=== PATIENT | female | born 1990 | race Hispanic/Latino ===

== ENCOUNTER 2019-07-02 08:02 | Emergency (ER) | payer MEDICAID ==
[2019-07-02 08:07] VITALS: BP 117/76
[2019-07-02 08:36] LABS: Basophils % (Auto) 0.4 % (0.0-1.8); Eosinophils # (Auto) 0.1 K/mm3 (0.0-0.4); Eosinophils % (Auto) 0.9 % (0.0-4.3); Hematocrit 37.7 % (30.3-42.9); Lymphocytes # (Auto) 1.7 K/mm3 (1.2-5.4); Lymphocytes % (Auto) 20.6 % (13.4-35.0); Mean Corpuscular HGB Conc 34 % (30-34); Mean Corpuscular Volume 97 fl (79-97); Monocytes # (Auto) 0.5 K/mm3 (0.0-0.8); Monocytes % (Auto) 6.2 % (0.0-7.3); Platelet Count 274 K/mm3 (140-440); Red Cell Distribution Width 12.5 % (13.2-15.2)
--- NOTE | 2019-07-02 08:38 | Emergency Department Report ---
ED HPI - General Chief complaint: Vaginal Bleeding Stated complaint: 3MOS /ADB CRAMPS/SPOTTING Time Seen by Provider: 07/02/19 08:09 Source: patient Mode of arrival: Ambulatory Limitations: No Limitations - History of Present Illness Initial comments: Patient is a 28-year-old female presents emergency room with complaints of light vaginal spotting that began yesterday. pt has associated suprapubic abdominal cramping and intermittent nausea and vomiting. She states she is currently 11 weeks . Her last menstrual cycle was April 15. She states that her PC TECHNICIAN is at [facility]. She states that she is able to tolerate by mouth intake. she denies any dysuria, vaginal discharge, diarrhea, fever. She denies any past medical history. She has allergy to codeine. /P:2/A:0 - Related Data Allergies Allergy/AdvReac Type Severity Reaction Status Date / Time codeine Allergy Swelling Verified 07/02/19 08:03 ED Review of Systems ROS: Stated complaint: 3MOS /ADB CRAMPS/SPOTTING Other details as noted in HPI Comment: All other systems reviewed and negative ED Past Medical Hx - Past Medical History Previous Medical History?: No - Surgical History Additional Surgical History: tonsilectomy - Social History Smoking Status: Never Smoker Substance Use Type: None ED Physical Exam - General Limitations: No Limitations General appearance: alert, in no apparent distress - Head Head exam: Present: atraumatic, normocephalic - Eye Eye exam: Present: normal appearance - ENT ENT exam: Present: mucous membranes moist - Respiratory Respiratory exam: Present: normal lung sounds bilaterally. Absent: respiratory distress, wheezes, rales, rhonchi, stridor, chest wall tenderness, accessory muscle use, decreased breath sounds, prolonged expiratory - Cardiovascular Cardiovascular Exam: Present: regular rate, normal rhythm, normal heart sounds. Absent: systolic murmur, diastolic murmur, rubs, gallop - GI/Abdominal GI/Abdominal exam: Present: soft, normal bowel sounds. Absent: distended, tenderness, guarding, rebound, rigid - Back Exam Back exam: Absent: CVA tenderness (R), CVA tenderness (L) - Neurological Exam Neurological exam: Present: alert, oriented X3 - Psychiatric Psychiatric exam: Present: normal affect, normal mood - Skin Skin exam: Present: warm, dry, intact ED Course Vital Signs 07/02/19 08:05 Temperature 98.3 F Pulse Rate 90 Respiratory 16 Rate Blood Pressure 117/76 O2 Sat by Pulse 100 Oximetry ED Medical Decision Making - Lab Data Result diagrams: 07/02/19 08:22 Lab Results 07/02/19 07/02/19 07/02/19 Range/Units 08:22 08:22 08:22 WBC 8.3 (4.5-11.0) K/mm3 RBC 3.90 (3.65-5.03) M/mm3 Hgb 13.0 (10.1-14.3) gm/dl Hct 37.7 (30.3-42.9) % MCV 97 (79-97) fl MCH 33 H (28-32) pg MCHC 34 (30-34) % RDW 12.5 L (13.2-15.2) % Plt Count 274 (140-440) K/mm3 Lymph % (Auto) 20.6 (13.4-35.0) % [place] % (Auto) 6.2 (0.0-7.3) % Eos % (Auto) 0.9 (0.0-4.3) % Baso % (Auto) 0.4 (0.0-1.8) % Lymph # 1.7 (1.2-5.4) K/mm3 [place] # 0.5 (0.0-0.8) K/mm3 Eos # 0.1 (0.0-0.4) K/mm3 Baso # 0.0 (0.0-0.1) K/mm3 Seg Neutrophils % 71.9 H (40.0-70.0) % Seg Neutrophils # 5.9 (1.8-7.7) K/mm3 HCG, Quant 11072 H (0-4) mIU/mL Urine Color (Yellow) Urine Turbidity (Clear) Urine pH (5.0-7.0) Ur Specific [place] (1.003-1.030) Urine Protein (Negative) mg/dL Urine Glucose (UA) (Negative) mg/dL Urine Ketones (Negative) mg/dL Urine Blood (Negative) Urine Nitrite (Negative) Urine Bilirubin (Negative) Urine Urobilinogen (<2.0) mg/dL Ur Leukocyte Esterase (Negative) Urine WBC (Auto) (0.0-6.0) /HPF Urine RBC (Auto) (0.0-6.0) /HPF U Epithel Cells (Auto) (0-13.0) /HPF Urine Bacteria (Auto) (Negative) /HPF Amorphous Crystals Urine Mucus /HPF Blood Type A POSITIVE 07/02/19 Range/Units 09:26 WBC (4.5-11.0) K/mm3 RBC (3.65-5.03) M/mm3 Hgb (10.1-14.3) gm/dl Hct (30.3-42.9) % MCV (79-97) fl MCH (28-32) pg MCHC (30-34) % RDW (13.2-15.2) % Plt Count (140-440) K/mm3 Lymph % (Auto) (13.4-35.0) % [place] % (Auto) (0.0-7.3) % Eos % (Auto) (0.0-4.3) % Baso % (Auto) (0.0-1.8) % Lymph # (1.2-5.4) K/mm3 [place] # (0.0-0.8) K/mm3 Eos # (0.0-0.4) K/mm3 Baso # (0.0-0.1) K/mm3 Seg Neutrophils % (40.0-70.0) % Seg Neutrophils # (1.8-7.7) K/mm3 HCG, Quant (0-4) mIU/mL Urine Color Yellow (Yellow) Urine Turbidity Cloudy (Clear) Urine pH 7.0 (5.0-7.0) Ur Specific [place] 1.017 (1.003-1.030) Urine Protein <15 mg/dl (Negative) mg/dL Urine Glucose (UA) Neg (Negative) mg/dL Urine Ketones Neg (Negative) mg/dL Urine Blood Neg (Negative) Urine Nitrite Neg (Negative) Urine Bilirubin Neg (Negative) Urine Urobilinogen < 2.0 (<2.0) mg/dL Ur Leukocyte Esterase Mod (Negative) Urine WBC (Auto) 4.0 (0.0-6.0) /HPF Urine RBC (Auto) 5.0 (0.0-6.0) /HPF U Epithel Cells (Auto) 13.0 (0-13.0) /HPF Urine Bacteria (Auto) 2+ (Negative) /HPF Amorphous Crystals Few Urine Mucus 2+ /HPF Blood Type - Radiology Data Radiology results: report reviewed ULTRASOUND OBSTETRIC INDICATION / CLINICAL INFORMATION: 11 weeks , vaginal spotting, cramping. Clinical Gestational Age (GA): 11 weeks 1 day TECHNIQUE: Transabdominal. COMPARISON: None available. FINDINGS: GESTATIONAL SAC: Well-defined oval shape and intrauterine in location. EMBRYO/FETUS: No significant abnormality. - [place]-Rump Length = 3.96 cm = 10 weeks, 6 day(s). - Heart Rate, beats per minute (if present) = 169 ADNEXA: There is a 10 mm cyst in the left ovary. The right ovary is unremarkable. FREE FLUID: None. Placenta: Posterior ADDITIONAL FINDINGS: None. IMPRESSION: 1. Single, living intrauterine with estimated sonographic age of 10 weeks, 6 day(s). 2. No visible abnormality at this time. Signer Name: Radha Pennington MD Signed: 07/02/2019 9:59 AM Workstation Name: [id number] Transcribed By: JR Dictated By: Radha Pennington MD Electronically Authenticated By: Radha Pennington MD Signed Date/Time: 07/02/19 0959 - Medical Decision Making Patient is a 28-year-old female presents emergency room with complaints of light vaginal spotting that began yesterday. pt has associated suprapubic abdominal cramping and intermittent nausea and vomiting. She states she is currently 11 weeks . Her last menstrual cycle was April 15. She states that her OB/G YN is at [facility]. She states that she is able to tolerate by mouth intake. she denies any dysuria, vaginal discharge, diarrhea, fever. She denies any past medical history. She has allergy to codeine. /P:2/A:0. vitals are normal. labs are stable. UA is normal. pt is Rh positive. OB US: 1. Single, living intrauterine with estimated sonographic age of 10 weeks, 6 day(s). 2. No visible abnormality at this time. discussed results with pt. pt given medication for her nausea and it resolved, pt had no episodes of emesis while in the ED, pt is tolerating PO intake. discussed with pt due to the abdominal cramping and light spotting it is considered a threatened miscarriage and she needed close follow up with her PC TECHNICIAN. advised pt to please drink plenty of water. please continue taking your vitamin daily. Please practice pelvic rest. follow up with your PC TECHNICIAN in the next 2-3 days. Return to the emergency room for any new or worsening symptoms. - Differential Diagnosis IUP, UTI, subchorionic hemorrhage, hemorrhagic cyst, placenta previa Critical care attestation.: If time is entered above; I have spent that time in minutes in the direct care of this critically ill patient, excluding procedure time. ED Disposition Clinical Impression: Suprapubic cramping, Vaginal spotting, Threatened miscarriage Disposition: TO HOME OR SELFCARE Is pt being admited?: No Does the pt Need Aspirin: No Condition: Stable Instructions: Threatened Miscarriage (ED) Additional Instructions: Please drink plenty of water. please continue taking your vitamin daily. Please practice pelvic rest. follow up with your PC TECHNICIAN in the next 2-3 days. Return to the emergency room for any new or worsening symptoms. Referrals: [facility] [Provider Group] - 2-3 Days Time of Disposition: 10:12 Print Language: KAZAKH
[2019-07-02] MEDS ORDERED: METOCLOPRAMIDE 10 MG TAB PO ONE (08:39)
[2019-07-02 09:56] LABS: Amorphous Crystals,Urine Few; Bacteria,Urine 2+ /HPF (Negative); Bilirubin,Urine NEG (Negative); Blood,Urine NEG (Negative); Color,Urine Yellow (Yellow); Mucus,Urine 2+ /HPF; Protein,Urine <15 mg/dL mg/dL (Negative); Urobilinogen,Urine < 2.0 mg/dL (<2.0)
--- NOTE | 2019-07-02 10:04 | Ultrasound Report ---
ULTRASOUND OBSTETRIC INDICATION / CLINICAL INFORMATION: 11 weeks , vaginal spotting, cramping. Clinical Gestational Age (GA): 11 weeks 1 day TECHNIQUE: Transabdominal. COMPARISON: None available. FINDINGS: GESTATIONAL SAC: Well-defined oval shape and intrauterine in location. EMBRYO/FETUS: No significant abnormality. - [place]-Rump Length = 3.96 cm = 10 weeks, 6 day(s). - Heart Rate, beats per minute (if present) = 169 ADNEXA: There is a 10 mm cyst in the left ovary. The right ovary is unremarkable. FREE FLUID: None. Placenta: Posterior ADDITIONAL FINDINGS: None. IMPRESSION: 1. Single, living intrauterine with estimated sonographic age of 10 weeks, 6 day(s). 2. No visible abnormality at this time. Signer Name: Radha Pennington MD Signed: 07/02/2019 9:59 AM Workstation Name: [id number]
== END 2019-07-02 10:21 | disposition home or self-care (01) ==
LOC: ED 08:02
DX: O20.0 Threatened abortion (principal); Z3A.11 11 weeks gestation of pregnancy; Z88.6 Allergy status to analgesic agent
CPT/HCPCS: 36415; 76801; 81001; 84702; 85025; 86900; 86901; 99284

== ENCOUNTER 2020-06-05 09:51 | Outpatient (CLI) | payer MEDICAID ==
[2020-06-05] MEDS ORDERED: LIDOCAINE (4%) 40 MG/ML TOPICAL SOLN 50 ML BOTTLE TP ONE (10:30)
== END 2020-06-05 09:52 | disposition home or self-care (01) ==
LOC: WOUND 09:51
PROVIDERS: ATTEND Surgery
DX: L97.412 Non-pressure chronic ulcer of right heel and midfoot with fat layer exposed (principal); S91.302A Unspecified open wound, left foot, initial encounter; F17.210 Nicotine dependence, cigarettes, uncomplicated; Z90.89 Acquired absence of other organs; X58.XXXA Exposure to other specified factors, initial encounter; Y93.89 Activity, other specified; Y92.89 Other specified places as the place of occurrence of the external cause; Y99.8 Other external cause status
CPT/HCPCS: 11042; G0463; 99214

== ENCOUNTER 2020-07-01 13:44 | Emergency (ER) | payer MEDICAID ==
[2020-07-01 14:01] VITALS: BP 123/86
[2020-07-01 14:26] LABS: Basophils % (Auto) 0.3 % (0.0-1.8); Eosinophils % (Auto) 0.8 % (0.0-4.3); Hemoglobin 14.2 gm/dl (10.1-14.3); Lymphocytes # (Auto) 1.5 K/mm3 (1.2-5.4); Lymphocytes % (Auto) 28.1 % (13.4-35.0); Mean Corpuscular HGB Conc 35 % (30-34); Mean Corpuscular Volume 96 fl (79-97); Monocytes # (Auto) 0.4 K/mm3 (0.0-0.8); Monocytes % (Auto) 6.6 % (0.0-7.3); Platelet Count 306 K/mm3 (140-440); Red Blood Count 4.26 M/mm3 (3.65-5.03); Red Cell Distribution Width 12.9 % (13.2-15.2)
--- NOTE | 2020-07-01 16:12 | Emergency Department Report ---
ED Female HPI - General Chief complaint: Vaginal Bleeding Stated complaint: HEAVY BLEEDING/ Time Seen by Provider: 07/01/20 15:47 Source: patient Mode of arrival: Ambulatory Limitations: No Limitations - History of Present Illness Initial comments: Patient is a 29-year-old female presents emergency room with complaints of vaginal bleeding for the last few days. States yesterday the bleeding got heavier but has since improved. She states that now she is just having light spotting. She states that she had an IUD placed a month ago. She states that she was feeling nauseous so she asked her [employer] to run a test and she reports it was positive about 2 weeks ago. She states that she had the IUD removed 2 weeks ago. She states that she has lower abdominal cramping since then. She states that she was concerned because the bleeding got a little heavier yesterday better now. She denies any fever, vomiting, diarrhea, chills, urinary symptoms, discharge or irritation. She states her OB is Dr. Anne. No past medical history. She has an allergy to codeine. - Related Data Previous Rx's Medication Instructions Recorded Last Taken Type Mupirocin [Bactroban 2% OINT] 1 applic TP TID 7 Days #2 tube 05/13/20 Unknown Rx oxyCODONE /ACETAMINOPHEN [Percocet 1 tab PO Q6HR PRN 3 Days #12 tablet 05/13/20 Unknown Rx 5/325 mg] Allergies Allergy/AdvReac Type Severity Reaction Status Date / Time codeine Allergy Swelling Verified 07/02/19 08:03 ED Review of Systems ROS: Stated complaint: HEAVY BLEEDING/ Other details as noted in HPI Comment: All other systems reviewed and negative ED Past Medical Hx - Past Medical History Previous Medical History?: No - Surgical History Past Surgical History?: Yes Additional Surgical History: tonsilectomy - Social History Smoking Status: Never Smoker Substance Use Type: None - Medications Home Medications: Home Medications Medication Instructions Recorded Confirmed Last Taken Type Mupirocin [Bactroban 2% OINT] 1 applic TP TID 7 Days #2 tube 05/13/20 Unknown Rx oxyCODONE /ACETAMINOPHEN [Percocet 1 tab PO Q6HR PRN 3 Days #12 tablet 05/13/20 Unknown Rx 5/325 mg] ED Physical Exam - General Limitations: No Limitations General appearance: alert, in no apparent distress - Head Head exam: Present: atraumatic, normocephalic - Eye Eye exam: Present: normal appearance - ENT ENT exam: Present: mucous membranes moist - Respiratory Respiratory exam: Present: normal lung sounds bilaterally. Absent: respiratory distress, wheezes, rales, rhonchi, stridor, chest wall tenderness, accessory muscle use, decreased breath sounds, prolonged expiratory - Cardiovascular Cardiovascular Exam: Present: regular rate, normal rhythm, normal heart sounds. Absent: systolic murmur, diastolic murmur, rubs, gallop - GI/Abdominal GI/Abdominal exam: Present: soft, normal bowel sounds. Absent: distended, tenderness, guarding, rebound, rigid - Neurological Exam Neurological exam: Present: alert, oriented X3 - Psychiatric Psychiatric exam: Present: normal affect, normal mood - Skin Skin exam: Present: warm, dry, intact ED Course Vital Signs 07/01/20 14:00 Temperature 98.1 F Pulse Rate 83 Respiratory 16 Rate Blood Pressure 123/86 O2 Sat by Pulse 98 Oximetry ED Medical Decision Making - Lab Data Result diagrams: 07/01/20 14:04 Lab Results 07/01/20 07/01/20 07/01/20 Range/Units 14:04 14:04 14:04 WBC 5.3 (4.5-11.0) K/mm3 RBC 4.26 (3.65-5.03) M/mm3 Hgb 14.2 (10.1-14.3) gm/dl Hct 41.0 (30.3-42.9) % MCV 96 (79-97) fl MCH 33 H (28-32) pg MCHC 35 H (30-34) % RDW 12.9 L (13.2-15.2) % Plt Count 306 (140-440) K/mm3 Lymph % (Auto) 28.1 (13.4-35.0) % [place] % (Auto) 6.6 (0.0-7.3) % Eos % (Auto) 0.8 (0.0-4.3) % Baso % (Auto) 0.3 (0.0-1.8) % Lymph # (Auto) 1.5 (1.2-5.4) K/mm3 [place] # (Auto) 0.4 (0.0-0.8) K/mm3 Eos # (Auto) 0.0 (0.0-0.4) K/mm3 Baso # (Auto) 0.0 (0.0-0.1) K/mm3 Seg Neutrophils % 64.2 (40.0-70.0) % Seg Neutrophils # 3.4 (1.8-7.7) K/mm3 HCG, Qual Negative (Negative) HCG, Quant < 2 (0-4) mIU/mL Blood Type 07/01/20 Range/Units 14:04 WBC (4.5-11.0) K/mm3 RBC (3.65-5.03) M/mm3 Hgb (10.1-14.3) gm/dl Hct (30.3-42.9) % MCV (79-97) fl MCH (28-32) pg MCHC (30-34) % RDW (13.2-15.2) % Plt Count (140-440) K/mm3 Lymph % (Auto) (13.4-35.0) % [place] % (Auto) (0.0-7.3) % Eos % (Auto) (0.0-4.3) % Baso % (Auto) (0.0-1.8) % Lymph # (Auto) (1.2-5.4) K/mm3 [place] # (Auto) (0.0-0.8) K/mm3 Eos # (Auto) (0.0-0.4) K/mm3 Baso # (Auto) (0.0-0.1) K/mm3 Seg Neutrophils % (40.0-70.0) % Seg Neutrophils # (1.8-7.7) K/mm3 HCG, Qual (Negative) HCG, Quant (0-4) mIU/mL Blood Type A POSITIVE - Medical Decision Making Patient is a 29-year-old female presents emergency room with complaints of vaginal bleeding for the last few days. States yesterday the bleeding got heavier but has since improved. She states that now she is just having light spotting. She states that she had an IUD placed a month ago. She states that she was feeling nauseous so she asked her [employer] to run a test and she reports it was positive about 2 weeks ago. She states that she had the IUD removed 2 weeks ago. She states that she has lower abdominal cramping since then. She states that she was concerned because the bleeding got a little heavier yesterday better now. She denies any fever, vomiting, diarrhea, chills, urinary symptoms, discharge or irritation. She states her OB is Dr. Anne. No past medical history. She has an allergy to codeine. vitals are normal. on e xam: No abdominal tenderness on exam, no guarding, no rebound, no rigidity, no distention, normal bowel sounds, no peritoneal signs. Labs are normal. hCG quant is less than 2. H&H is normal. Discussed all results with patient and discussed hCG quant value. discussed the importance of [employer] follow up with pt, she states she is currently seeing an [employer] SPECIALTY GROWER. Advised patient May alternate Tylenol or ibuprofen as needed for lower abdominal cramping. Increase your water intake. Follow-up with your [employer] within the next couple of days. Return to emergency room for any new or worsening symptoms. - Differential Diagnosis IUP, ectopic, AUB, menstrual cycle, post IUD removal bleeding Critical care attestation.: If time is entered above; I have spent that time in minutes in the direct care of this critically ill patient, excluding procedure time. ED Disposition Clinical Impression: Abnormal uterine bleeding (AUB) Disposition: DC-01 TO HOME OR SELFCARE Is pt being admited?: No Does the pt Need Aspirin: No Condition: Stable Additional Instructions: May alternate Tylenol or ibuprofen as needed for lower abdominal cramping. Increase your water intake. Follow-up with your [employer] within the next couple of days. Return to emergency room for any new or worsening symptoms. Referrals: KENZIE ANNE MD [Referring] - 2-3 Days Time of Disposition: 16:11 Print Language: LAO
== END 2020-07-01 16:35 | disposition home or self-care (01) ==
LOC: ED 13:44
DX: N93.8 Other specified abnormal uterine and vaginal bleeding (principal); Z90.89 Acquired absence of other organs; Z88.4 Allergy status to anesthetic agent
CPT/HCPCS: 36415; 84702; 84703; 85025; 86900; 86901; 99283

== ENCOUNTER 2021-08-18 02:08 | Emergency (ER) | payer MEDICAID ==
[2021-08-18] MEDS ORDERED: AMOXICILLIN/K CLAV 875/125MG TAB PO ONE (02:25)
[2021-08-18] MEDS ORDERED: IBUPROFEN 600 MG TAB PO ONE (02:25)
[2021-08-18] MEDS ORDERED: ACETAMINOPHEN 500 MG TAB PO ONE (02:26)
--- NOTE | 2021-08-18 02:30 | Emergency Department Report ---
ED General Adult HPI - General Chief complaint: Dental/Oral Stated complaint: TOOTHACHE PUI?: No Source: patient Mode of arrival: Ambulatory Limitations: No Limitations - History of Present Illness Initial comments: Patient is a 30-year-old white female with a history of anxiety and depression who presents to the ED with acute onset persistent severe right maxillary premolar molar toothache with swollen gums and pain for the last 2 days. Patient states that the pain got worse in the last 6 hours after she ate and with some food. Patient denies nausea and vomiting, headache, chest pain, shortness of breath, sore throat, dizziness, syncope, change in vision, traumatic injury, neck pain, back pain, fever and chills. MD Complaint: Dental pain; swollen gums and pain -: Sudden, days(s) (2) Location: mouth Radiation: non-radiation Severity scale (0 -10): 7 Quality: aching, sharp Consistency: constant Improves with: none Worsens with: eating Associated Symptoms: denies other symptoms. denies: confusion, chest pain, cough, diaphoresis, fever/chills, headaches, loss of appetite, malaise, nausea/ vomiting, rash, seizure, shortness of breath, syncope, weakness, other Treatments Prior to Arrival: none - Related Data Previous Rx's Medication Instructions Recorded Last Taken Type Mupirocin [Bactroban 2% OINT] 1 applic TP TID 7 Days #2 tube 05/13/20 Unknown Rx oxyCODONE /ACETAMINOPHEN [Percocet 1 tab PO Q6HR PRN 3 Days #12 tablet 05/13/20 Unknown Rx 5/325 mg] Clindamycin [Clindamycin CAP] 300 mg PO Q8HR #60 capsule 08/18/21 Unknown Rx Ketorolac [Toradol] 10 mg PO Q8H PRN #20 tablet 08/18/21 Unknown Rx traMADoL [Ultram] 50 mg PO Q6HR PRN #12 tablet 08/18/21 Unknown Rx Allergies Allergy/AdvReac Type Severity Reaction Status Date / Time codeine Allergy Swelling Verified 08/18/21 02:14 ED Review of Systems ROS: Stated complaint: TOOTHACHE Other details as noted in HPI Constitutional: denies: chills, fever Eyes: denies: eye pain, eye discharge, vision change ENT: dental pain (Right maxillary gingival swelling and pain; right maxillary premolar and molar tooth). denies: ear pain, throat pain, congestion Respiratory: denies: cough, shortness of breath, wheezing Cardiovascular: denies: chest pain, palpitations Endocrine: no symptoms reported Gastrointestinal: denies: abdominal pain, nausea, diarrhea Genitourinary: denies: urgency, dysuria, discharge Musculoskeletal: denies: back pain, joint swelling, arthralgia Skin: denies: rash, lesions Neurological: denies: headache, weakness, paresthesias Psychiatric: denies: anxiety, depression Hematological/Lymphatic: denies: easy bleeding, easy bruising ED Past Medical Hx - Past Medical History Previous Medical History?: No Hx Psychiatric Treatment: Yes (Anxiety and depression) - Surgical History Past Surgical History?: Yes Additional Surgical History: tonsilectomy - Social History Smoking Status: Never Smoker Substance Use Type: None - Medications Home Medications: Home Medications Medication Instructions Recorded Confirmed Last Taken Type Mupirocin [Bactroban 2% OINT] 1 applic TP TID 7 Days #2 tube 05/13/20 Unknown Rx oxyCODONE /ACETAMINOPHEN [Percocet 1 tab PO Q6HR PRN 3 Days #12 tablet 05/13/20 Unknown Rx 5/325 mg] Clindamycin [Clindamycin CAP] 300 mg PO Q8HR #60 capsule 08/18/21 Unknown Rx Ketorolac [Toradol] 10 mg PO Q8H PRN #20 tablet 08/18/21 Unknown Rx traMADoL [Ultram] 50 mg PO Q6HR PRN #12 tablet 08/18/21 Unknown Rx ED Physical Exam - General Limitations: No Limitations General appearance: alert, in no apparent distress - Head Head exam: Present: atraumatic, normocephalic, normal inspection - Eye Eye exam: Present: normal appearance, PERRL, EOMI Pupils: Present: normal accommodation - ENT ENT exam: Present: mucous membranes moist, TM's normal bilaterally, normal external ear exam, other (Swelling, tender right maxillary gingiva, severely tender right maxillary premolar and molar teeth) - Neck Neck exam: Present: normal inspection, full ROM - Respiratory Respiratory exam: Present: normal lung sounds bilaterally. Absent: respiratory distress, wheezes, rales, stridor, chest wall tenderness, accessory muscle use, prolonged expiratory, other - Cardiovascular Cardiovascular Exam: Present: regular rate, normal rhythm, normal heart sounds. Absent: systolic murmur, diastolic murmur, rubs, gallop - GI/Abdominal GI/Abdominal exam: Present: soft, normal bowel sounds. Absent: tenderness, guarding, hyperactive bowel sounds, hypoactive bowel sounds, organomegaly - Extremities Exam Extremities exam: Present: normal inspection, full ROM, normal capillary refill - Back Exam Back exam: Present: normal inspection, full ROM. Absent: tenderness, CVA tende rness (R), CVA tenderness (L), muscle spasm, paraspinal tenderness, vertebral tenderness - Neurological Exam Neurological exam: Present: alert, oriented X3, CN II-XII intact, normal gait, reflexes normal - Psychiatric Psychiatric exam: Present: normal affect, normal mood - Skin Skin exam: Present: warm, dry, intact, normal color. Absent: rash ED Course Vital Signs 08/18/21 02:11 Temperature 98.9 F Pulse Rate 84 Respiratory 17 Rate Blood Pressure 122/83 [Right] O2 Sat by Pulse 99 Oximetry ED Medical Decision Making - Medical Decision Making This is a 30-year-old white female with a history of anxiety and depression who presents to the ED with acute onset persistent severe right maxillary premolar molar toothache with swollen gums and pain for the last 2 days. Patient states that the pain got worse in the last 6 hours after she ate and with some food. In the ED, patient is alert and oriented x3 and is not in any distress. Patient was treated for pain in the ED and based on the history and physical exam findings, the patient will discharge home on medications including antibiotics and pain medications. Patient was advised to follow-up with her dentist as previously scheduled for Sunday, August 22, 2021 for further evaluation. Patient is advised return to the ED immediately if symptoms get worse. - Differential Diagnosis Dental abscess; dental caries; gingivitis Critical care attestation.: If time is entered above; I have spent that time in minutes in the direct care of this critically ill patient, excluding procedure time. ED Disposition Clinical Impression: Acute gingivitis, Dental abscess, Dental caries Disposition: HOME / SELF CARE / HOMELESS Is pt being admited?: No Does the pt Need Aspirin: No Condition: Stable Instructions: Dental Abscess, [id number], Trench Mouth Additional Instructions: Take medication with food, drink plenty of fluids and follow-up with your primary care physician or dentist in 7 to 10 days for reevaluation. Return to the ED immediately if symptoms get worse. Prescriptions: Clindamycin [Clindamycin CAP] 300 mg PO Q8HR #60 capsule Ketorolac [Toradol] 10 mg PO Q8H PRN #20 tablet PRN Reason: Pain traMADoL [Ultram] 50 mg PO Q6HR PRN #12 tablet PRN Reason: Pain Referrals: [facility] [Outside] - 7-10 days Time of Disposition: 02:31 Print Language: [place]URK[place]
[2021-08-18 04:11] VITALS: BP 109/73
== END 2021-08-18 03:26 | disposition home or self-care (01) ==
LOC: ED 02:08
DX: K04.7 Periapical abscess without sinus (principal); K02.9 Dental caries, unspecified; K05.00 Acute gingivitis, plaque induced; F41.9 Anxiety disorder, unspecified; Z88.8 Allergy status to other drugs, medicaments and biological substances
CPT/HCPCS: 99282

== ENCOUNTER 2022-02-10 10:10 | Emergency (ER) | payer MEDICAID ==
[2022-02-10 14:14] LABS: HCG Qualitative,Urine Positive (Negative)
[2022-02-10] MEDS ORDERED: ONDANSETRON 4 MG/2 ML INJ IV ONE (14:18)
[2022-02-10] MEDS ORDERED: SODIUM CHLORIDE 0.9% 1000 ML 1,000 ML IV ONE (14:18)
--- NOTE | 2022-02-10 14:18 | Emergency Department Report ---
ED Female HPI - General Chief complaint: Nausea/Vomiting/Diarrhea Stated complaint: NAUSEA/DIZZINESS Time Seen by Provider: 02/10/22 14:16 Source: patient Mode of arrival: Ambulatory Limitations: No Limitations - History of Present Illness Initial comments: Patient is a 31-year-old female that comes to the emergency room with nausea and vomiting associated with . She states she took a test at home. And it was positive. She endorses hyperemesis with all of her prior pregnancies. This is #4. She has 3 living children. 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 She denies any abdominal pain. Denies back pain. Denies dysuria. Denies vaginal discharge. Denies vaginal bleeding. -: Gradual, days(s) Severity scale (0 -10): 0 Worsens with: none Are you Now?: Yes Last Menstrual Period: 01/01/22 EDC: 10/08/22 Associated Symptoms: denies other symptoms - Related Data Sexually active: Yes : 4 Para: 3 Previous Rx's Medication Instructions Recorded Last Taken Type Ondansetron [Zofran Odt] 4 mg PO Q8HR PRN #10 tab.rapdis 02/10/22 Unknown Rx Allergies Allergy/AdvReac Type Severity Reaction Status Date / Time codeine Allergy Swelling Verified 08/18/21 02:14 ED Review of Systems ROS: Stated complaint: NAUSEA/DIZZINESS Other details as noted in HPI Comment: All other systems reviewed and negative ED Past Medical Hx - Past Medical History Previous Medical History?: Yes Hx Psychiatric Treatment: Yes (Anxiety and depression) Additional medical history: Hyperemesis gravidarum - Surgical History Past Surgical History?: Yes Additional Surgical History: tonsilectomy - Family History Family history: no significant - Social History Smoking Status: Never Smoker Substance Use Type: None - Medications Home Medications: Home Medications Medication Instructions Recorded Confirmed Last Taken Type Ondansetron [Zofran Odt] 4 mg PO Q8HR PRN #10 tab.rapdis 02/10/22 Unknown Rx ED Physical Exam - General Limitations: No Limitations General appearance: alert, in no apparent distress - Head Head exam: Present: atraumatic, normocephalic - Eye Eye exam: Present: normal appearance - ENT ENT exam: Present: mucous membranes moist - Neck Neck exam: Present: normal inspection - Respiratory Respiratory exam: Present: normal lung sounds bilaterally. Absent: respiratory distress - Cardiovascular Cardiovascular Exam: Present: regular rate, normal rhythm. Absent: systolic murmur, diastolic murmur, rubs, gallop - GI/Abdominal GI/Abdominal exam: Present: soft, normal bowel sounds - Extremities Exam Extremities exam: Present: normal inspection - Back Exam Back exam: Present: normal inspection - Neurological Exam Neurological exam: Present: alert, oriented X3 - Psychiatric Psychiatric exam: Present: normal affect, normal mood - Skin Skin exam: Present: warm, dry, intact, normal color. Absent: rash ED Course Vital Signs 02/10/22 12:05 Temperature 97.6 F Pulse Rate 70 Respiratory 18 Rate Blood Pressure 96/56 O2 Sat by Pulse 100 Oximetry ED Medical Decision Making - Medical Decision Making Vital Signs 02/10/22 12:05 Temperature 97.6 F Pulse Rate 70 Respiratory 18 Rate Blood Pressure 96/56 O2 Sat by Pulse 100 Oximetry Lab Results 02/10/22 Range/Units 13:52 Urine Color Colorless (Yellow) Urine Turbidity Clear (Clear) Urine pH 9.0 H (5.0-7.0) Ur Specific [place] 1.004 (1.003-1.030) Urine Protein <15 mg/dl (Negative) mg/dL Urine Glucose (UA) Neg (Negative) mg/dL Urine Ketones Neg (Negative) mg/dL Urine Blood Neg (Negative) Urine Nitrite Neg (Negative) Ur Reducing Substances Not Reportable Urine Bilirubin Neg (Negative) Urine Ictotest Not Reportable Urine Urobilinogen < 2.0 (<2.0) mg/dL Ur Leukocyte Esterase Neg (Negative) Urine WBC (Auto) 1.0 (0.0-6.0) /HPF Urine RBC (Auto) 1.0 (0.0-6.0) /HPF U Epithel Cells (Auto) 1.0 (0-13.0) /HPF Urine Bacteria (Auto) 1+ (Negative) /HPF Urine HCG, Qual Positive A (Negative) UA noted. Patient given a liter normal saline and Zofran. Patient being discharged home with discharge plan of care including diet, activity, medications and follow-up. She verbalizes understanding of plan of care. - Differential Diagnosis Nausea and vomiting associated with Critical care attestation.: If time is entered above; I have spent that time in minutes in the direct care of this critically ill patient, excluding procedure time. ED Disposition Clinical Impression: Nausea and vomiting during Disposition: 01 HOME / SELF CARE / HOMELESS Is pt being admited?: No Does the pt Need Aspirin: No Condition: Stable Instructions: Morning Sickness, [id number] Additional Instructions: Diet as tolerated stay well-hydrated with water Tylenol only for pain Zofran for nausea Follow-up with [employer] [employer] as we discussed. Referral below Referrals: NOBLE VALLECILLO MD [Staff Physician] - 3-5 Days Time of Disposition: 14:18
[2022-02-10 14:23] LABS: Bacteria,Urine 1+ /HPF (Negative); Bilirubin,Urine NEG (Negative); Blood,Urine NEG (Negative); Color,Urine Colorless (Yellow); Protein,Urine <15 mg/dL mg/dL (Negative); Urobilinogen,Urine < 2.0 mg/dL (<2.0)
[2022-02-10 15:58] VITALS: BP 100/62
== END 2022-02-10 16:00 | disposition home or self-care (01) ==
LOC: ED 10:10
DX: O21.8 Other vomiting complicating pregnancy (principal); Z3A.01 Less than 8 weeks gestation of pregnancy; F41.9 Anxiety disorder, unspecified; F32.9 Major depressive disorder, single episode, unspecified; Z98.890 Other specified postprocedural states; Z88.5 Allergy status to narcotic agent
CPT/HCPCS: 81001; 81025; 96374; 99283; J2405; J7030

== ENCOUNTER 2022-02-22 09:55 | Emergency (ER) | payer MEDICAID ==
[2022-02-22] MEDS ORDERED: METOCLOPRAMIDE 10 MG TAB PO ONE (10:12)
[2022-02-22 10:17] VITALS: BP 98/67
[2022-02-22 11:01] LABS: Basophils % (Auto) 0.3 % (0.0-1.8); Eosinophils # (Auto) 0.1 K/mm3 (0.0-0.4); Eosinophils % (Auto) 0.9 % (0.0-4.3); Hematocrit 36.4 % (30.3-42.9); Hemoglobin 12.4 gm/dl (10.1-14.3); Lymphocytes # (Auto) 1.3 K/mm3 (1.2-5.4); Lymphocytes % (Auto) 17.3 % (13.4-35.0); Mean Corpuscular HGB Conc 34 % (30-34); Mean Corpuscular Volume 98 fl (79-97); Monocytes # (Auto) 0.6 K/mm3 (0.0-0.8); Monocytes % (Auto) 7.9 % (0.0-7.3); Platelet Count 260 K/mm3 (140-440); Red Blood Count 3.73 M/mm3 (3.65-5.03); Red Cell Distribution Width 11.8 % (13.2-15.2)
[2022-02-22 11:08] LABS: INR 0.95 (0.87-1.13)
[2022-02-22 11:09] LABS: Partial Thromboplastin Time 24.7 Sec. (24.2-36.6)
[2022-02-22 11:50] LABS: Alanine Aminotransferase 13 units/L (7-56); Albumin 4.3 g/dL (3.9-5); Blood Urea Nitrogen 9 mg/dL (7-17); Calcium 8.8 mg/dL (8.4-10.2); Hemolysis Index 3
[2022-02-22 11:58] LABS: BUN/Creatinine Ratio 23
[2022-02-22 12:19] LABS: Bacteria,Urine 1+ /HPF (Negative); Bilirubin,Urine NEG (Negative); Blood,Urine NEG (Negative); Color,Urine Yellow (Yellow); Mucus,Urine 3+ /HPF; Urobilinogen,Urine < 2.0 mg/dL (<2.0)
--- NOTE | 2022-02-22 13:00 | Emergency Department Report ---
ED HPI - General Chief complaint: Vaginal Bleeding Stated complaint: SPOTTING DURING PREG/NAUSEA Time Seen by Provider: 02/22/22 10:02 Source: patient Mode of arrival: Ambulatory Limitations: No Limitations - History of Present Illness Initial comments: This is a 31-year-old female nontoxic, well nourished in appearance, no acute signs of distress presents to the ED with c/o of vaginal bleeding x1 day. Patient stated yesterday she noticed some spotting. Patient denies any heavy vaginal bleeding. Patient stated she did see her STOCK HANGER and was prescribed Phenergan with no significant relief. Patient also stated has some nausea witho ut vomiting. Patient denies any abdominal or pelvic pain. Patient denies any vaginal discharge or foul odor. Patient denies any vomiting, chest pain, shortness of breathe, fever, chills, headache, stiff neck, numbness, tingling. Patient denies any urinary symptoms. Patient stated allergies to codeine. -: days(s) Radiation: none Severity scale (0 -10): 0 Improves with: none Worsens with: none Associated symptoms: nausea/vomiting. denies: vaginal bleeding, vaginal discharge, abdominal pain, dysuria, headache, vision changes, malaise, dysparuenia, rash, seizure, shortness of breath, syncope, weakness Vaginal bleeding: light :: Yes Number of weeks : 8 Pre-annamarie care: followed by OB - Related Data Previous Rx's Medication Instructions Recorded Last Taken Type Ondansetron [Zofran Odt] 4 mg PO Q8HR PRN #10 tab.rapdis 02/10/22 Unknown Rx Metoclopramide [Reglan] 10 mg PO BID PRN #12 tab 02/22/22 Unknown Rx Allergies Allergy/AdvReac Type Severity Reaction Status Date / Time codeine Allergy Swelling Verified 08/18/21 02:14 ED Review of Systems ROS: Stated complaint: SPOTTING DURING PREG/NAUSEA Other details as noted in HPI Comment: All other systems reviewed and negative Constitutional: denies: chills, fever Eyes: denies: eye pain, eye discharge, vision change ENT: denies: ear pain, throat pain Respiratory: denies: cough, shortness of breath, wheezing Cardiovascular: denies: chest pain, palpitations Endocrine: no symptoms reported Gastrointestinal: nausea. denies: abdominal pain, vomiting, diarrhea, constipation, hematemesis, melena, hematochezia Genitourinary: abnormal menses. denies: urgency, dysuria, discharge Musculoskeletal: denies: back pain, joint swelling, arthralgia Skin: denies: rash, lesions Neurological: denies: headache, weakness, paresthesias Psychiatric: denies: anxiety, depression Hematological/Lymphatic: denies: easy bleeding, easy bruising ED Past Medical Hx - Past Medical History Previous Medical History?: No Hx Psychiatric Treatment: Yes (Anxiety and depression) Additional medical history: Hyperemesis gravidarum - Surgical History Additional Surgical History: tonsilectomy - Social History Smoking Status: Never Smoker - Medications Home Medications: Home Medications Medication Instructions Recorded Confirmed Last Taken Type Ondansetron [Zofran Odt] 4 mg PO Q8HR PRN #10 tab.rapdis 02/10/22 Unknown Rx Metoclopramide [Reglan] 10 mg PO BID PRN #12 tab 02/22/22 Unknown Rx ED Physical Exam - General Limitations: No Limitations General appearance: alert, in no apparent distress - Head Head exam: Present: atraumatic, normocephalic - Eye Eye exam: Present: normal appearance - Neck Neck exam: Present: normal inspection, full ROM. Absent: lymphadenopathy - Respiratory Respiratory exam: Absent: respiratory distress - Cardiovascular Cardiovascular Exam: Present: regular rate - GI/Abdominal GI/Abdominal exam: Present: soft, normal bowel sounds. Absent: distended, tenderness, guarding, rebound, rigid, diminished bowel sounds - Extremities Exam Extremities exam: Present: full ROM - Back Exam Back exam: Present: full ROM - Neurological Exam Neurological exam: Present: alert, oriented X3, normal gait - Psychiatric Psychiatric exam: Present: normal affect, normal mood - Skin Skin exam: Present: warm, dry, intact, normal color. Absent: rash ED Course Vital Signs 02/22/22 10:11 Temperature 98.7 F Pulse Rate 92 H Respiratory 14 Rate Blood Pressure 98/67 O2 Sat by Pulse 100 Oximetry - Reevaluation(s) Reevaluation #1: 02/22/22 13:02 Patient is speaking in full sentences with no signs of distress noted. ED Medical Decision Making - Lab Data Result diagrams: 02/22/22 10:30 02/22/22 10:30 Lab Results 02/22/22 02/22/22 02/22/22 Range/Units 10:30 10:30 10:30 WBC 7.3 (4.5-11.0) K/mm3 RBC 3.73 (3.65-5.03) M/mm3 Hgb 12.4 (10.1-14.3) gm/dl Hct 36.4 (30.3-42.9) % MCV 98 H (79-97) fl MCH 33 H (28-32) pg MCHC 34 (30-34) % RDW 11.8 L (13.2-15.2) % Plt Count 260 (140-440) K/mm3 Lymph % (Auto) 17.3 (13.4-35.0) % [place] % (Auto) 7.9 H (0.0-7.3) % Eos % (Auto) 0.9 (0.0-4.3) % Baso % (Auto) 0.3 (0.0-1.8) % Lymph # (Auto) 1.3 (1.2-5.4) K/mm3 [place] # (Auto) 0.6 (0.0-0.8) K/mm3 Eos # (Auto) 0.1 (0.0-0.4) K/mm3 Baso # (Auto) 0.0 (0.0-0.1) K/mm3 Seg Neutrophils % 73.6 H (40.0-70.0) % Seg Neutrophils # 5.4 (1.8-7.7) K/mm3 PT 13.7 (12.2-14.9) Sec. INR 0.95 (0.87-1.13) APTT 24.7 (24.2-36.6) Sec. Sodium 135 L (137-145) mmol/L Potassium 3.8 (3.6-5.0) mmol/L Chloride 105.8 (98-107) mmol/L Carbon Dioxide 22 (22-30) mmol/L Anion Gap 11 mmol/L BUN 9 (7-17) mg/dL Creatinine 0.4 L (0.6-1.2) mg/dL Estimated GFR > 60 ml/min BUN/Creatinine Ratio 23 % Glucose 88 (65-100) mg/dL Calcium 8.8 (8.4-10.2) mg/dL Total Bilirubin 0.30 (0.1-1.2) mg/dL AST 12 (5-40) units/L ALT 13 (7-56) units/L Alkaline Phosphatase 53 (35-129) units/L Total Protein 6.9 (6.3-8.2) g/dL Albumin 4.3 (3.9-5) g/dL Albumin/Globulin Ratio 1.7 % Urine Color (Yellow) Urine Turbidity (Clear) Urine pH (5.0-7.0) Ur Specific [place] (1.003-1.030) Urine Protein (Negative) mg/dL Urine Glucose (UA) (Negative) mg/dL Urine Ketones (Negative) mg/dL Urine Blood (Negative) Urine Nitrite (Negative) Urine Bilirubin (Negative) Urine Urobilinogen (<2.0) mg/dL Ur Leukocyte Esterase (Negative) Urine WBC (Auto) (0.0-6.0) /HPF Urine RBC (Auto) (0.0-6.0) /HPF U Epithel Cells (Auto) (0-13.0) /HPF Urine Bacteria (Auto) (Negative) /HPF Urine Mucus /HPF Blood Type 02/22/22 02/22/22 Range/Units 10:30 Unknown WBC (4.5-11.0) K/mm3 RBC (3.65-5.03) M/mm3 Hgb (10.1-14.3) gm/dl Hct (30.3-42.9) % MCV (79-97) fl MCH (28-32) pg MCHC (30-34) % RDW (13.2-15.2) % Plt Count (140-440) K/mm3 Lymph % (Auto) (13.4-35.0) % [place] % (Auto) (0.0-7.3) % Eos % (Auto) (0.0-4.3) % Baso % (Auto) (0.0-1.8) % Lymph # (Auto) (1.2-5.4) K/mm3 [place] # (Auto) (0.0-0.8) K/mm3 Eos # (Auto) (0.0-0.4) K/mm3 Baso # (Auto) (0.0-0.1) K/mm3 Seg Neutrophils % (40.0-70.0) % Seg Neutrophils # (1.8-7.7) K/mm3 PT (12.2-14.9) Sec. INR (0.87-1.13) APTT (24.2-36.6) Sec. Sodium (137-145) mmol/L Potassium (3.6-5.0) mmol/L Chloride (98-107) mmol/L Carbon Dioxide (22-30) mmol/L Anion Gap mmol/L BUN (7-17) mg/dL Creatinine (0.6-1.2) mg/dL Estimated GFR ml/min BUN/Creatinine Ratio % Glucose (65-100) mg/dL Calcium (8.4-10.2) mg/dL Total Bilirubin (0.1-1.2) mg/dL AST (5-40) units/L ALT (7-56) units/L Alkaline Phosphatase (35-129) units/L Total Protein (6.3-8.2) g/dL Albumin (3.9-5) g/dL Albumin/Globulin Ratio % Urine Color Yellow (Yellow) Urine Turbidity Slightly-cloudy (Clear) Urine pH 7.0 (5.0-7.0) Ur Specific [place] 1.023 (1.003-1.030) Urine Protein 30 mg/dl (Negative) mg/dL Urine Glucose (UA) Neg (Negative) mg/dL Urine Ketones Neg (Negative) mg/dL Urine Blood Neg (Negative) Urine Nitrite Neg (Negative) Urine Bilirubin Neg (Negative) Urine Urobilinogen < 2.0 (<2.0) mg/dL Ur Leukocyte Esterase Mod (Negative) Urine WBC (Auto) 2.0 (0.0-6.0) /HPF Urine RBC (Auto) 2.0 (0.0-6.0) /HPF U Epithel Cells (Auto) 9.0 (0-13.0) /HPF Urine Bacteria (Auto) 1+ (Negative) /HPF Urine Mucus 3+ /HPF Blood Type A POSITIVE - Radiology Data [facility] [address] [place] [address] Ultrasound Report Signed Patient: TONI MADDEN MR#: [id number] : 1990 Acct:[id number] Age/Sex: 31 / F ADM Date: 02/22/22 Loc: ED Attending Dr: Ordering Physician: TIANNA PITTMAN NP Date of Service: 02/22/22 Procedure(s): US OB <= 14 wk fetus add gest Accession Number(s): [id number] cc: TIANNA PITTMAN NP OB Ultrasound HISTORY: vaginal bleeding. TECHNIQUE: Grayscale and color imaging performed. COMPARISON: None FINDINGS: Uterus measures 10.3 x 7.5 x 6.6 cm with twin gestations in place. The ovaries both appear unremarkable with no appreciable pelvic free fluid. Twin A: [place]-rump length of 1.3 cm corresponding with an EGA of 7 weeks and 4 days. Heart rate 150 bpm. Twin B: [place]-rump length of 1.2 cm corresponding with an EGA of 7 weeks and 3 days. Heart rate is 159 bpm. IMPRESSION: Twin gestations as outlined above. Signer Name: Floyd Thomas MD Signed: 02/22/2022 11:46 AM Workstation Name: [id number] Transcribed By: WEI Dictated By: Floyd Thomas MD Electronically Authenticated By: Floyd Thomas MD Signed Date/Time: 02/22/22 1146 DD/ 1144 TD/TT: - Medical Decision Making This is a 31-year-old female presents with threatened miscarriage. Patient is stable and was examined by me. Normal abdominal exam. US OB obtained and dictated by the radiologist. Ua obtained. Quantative serum test obtained. Patient notified of the US report with no questions noted by the patient. Patient was instructed f/u with STOCK HANGER in 3-5 days. RH factor positive. A p.o. challenge has been obtained and patient tolerated well with no nausea vomiting. Patient currently stated nausea has subsided after giving Reglan. Labs within normal limits. At time of discharge, the patient does not seem toxic or ill in appearance. No acute signs of distress noted. Patient agrees to discharge treatment plan of care. No further questions noted by the patient. Critical care attestation.: If time is entered above; I have spent that time in minutes in the direct care of this critically ill patient, excluding procedure time. ED Disposition Clinical Impression: Threatened miscarriage, Nausea and vomiting during Disposition: HOME / SELF CARE / HOMELESS Is pt being admited?: No Does the pt Need Aspirin: No Condition: Stable Instructions: Threatened Miscarriage Additional Instructions: Follow-up with a STOCK HANGER doctor in 3-5 days or if symptoms worsen and continue return to emergency room as soon as possible. Prescriptions: Metoclopramide [Reglan] 10 mg PO BID PRN #12 tab PRN Reason: Nausea Referrals: PRIMARY CARE, [Referring] - 3-5 Days [facility] [Provider Group] - 3-5 Days [facility] [Provider Group] - 3-5 Days Time of Disposition: 13:04
--- NOTE | 2022-02-24 10:38 | Ultrasound Report ---
OB Ultrasound HISTORY: vaginal bleeding. TECHNIQUE: Grayscale and color imaging performed. COMPARISON: None FINDINGS: Uterus measures 10.3 x 7.5 x 6.6 cm with twin gestations in place. The ovaries both appear unremarkable with no appreciable pelvic free fluid. Twin A: [place]-rump length of 1.3 cm corresponding with an EGA of 7 weeks and 4 days. Heart rate 150 b pm. Twin B: [place]-rump length of 1.2 cm corresponding with an EGA of 7 weeks and 3 days. Heart rate is 15 9 bpm. IMPRESSION: Twin gestations as outlined above. Signer Name: Floyd Thomas MD Signed: 02/22/2022 11:46 AM Workstation Name: [id number]
== END 2022-02-22 13:15 | disposition home or self-care (01) ==
LOC: ED 09:55
DX: O20.0 Threatened abortion (principal); O21.8 Other vomiting complicating pregnancy; Z3A.01 Less than 8 weeks gestation of pregnancy; F41.9 Anxiety disorder, unspecified; Z91.09 Other allergy status, other than to drugs and biological substances; Z79.899 Other long term (current) drug therapy
CPT/HCPCS: 36415; 76801; 76802; 76817; 80053; 81001; 85025; 85610; 85730; 86900; 86901; 99284

== ENCOUNTER 2022-03-15 22:51 | Emergency (ER) | payer MEDICAID ==
[2022-03-15 23:34] VITALS: BP 100/55
[2022-03-16 07:27] LABS: Basophils % (Auto) 0.3 % (0.0-1.8); Eosinophils # (Auto) 0.1 K/mm3 (0.0-0.4); Eosinophils % (Auto) 0.8 % (0.0-4.3); Hemoglobin 11.6 gm/dl (10.1-14.3); Lymphocytes # (Auto) 1.9 K/mm3 (1.2-5.4); Lymphocytes % (Auto) 23.8 % (13.4-35.0); Mean Corpuscular HGB Conc 34 % (30-34); Mean Corpuscular Volume 96 fl (79-97); Monocytes # (Auto) 0.5 K/mm3 (0.0-0.8); Monocytes % (Auto) 6.4 % (0.0-7.3); Platelet Count 261 K/mm3 (140-440); Red Blood Count 3.55 M/mm3 (3.65-5.03); Red Cell Distribution Width 12.3 % (13.2-15.2)
[2022-03-16 07:49] LABS: Alanine Aminotransferase 10 units/L (7-56); Albumin 4.3 g/dL (3.9-5); Blood Urea Nitrogen 9 mg/dL (7-17); Calcium 8.9 mg/dL (8.4-10.2); Hemolysis Index 4
[2022-03-16 07:51] LABS: BUN/Creatinine Ratio 30
[2022-03-16 09:10] LABS: Bacteria,Urine 1+ /HPF (Negative); Mucus,Urine FEW /HPF
--- NOTE | 2022-03-16 09:29 | Emergency Department Report ---
ED Female HPI - General Chief complaint: Vaginal Bleeding Stated complaint: 8WEEKS PREG/BLEEDING Time Seen by Provider: 03/16/22 08:43 Source: patient Mode of arrival: Ambulatory Limitations: No Limitations - History of Present Illness Initial comments: Last menstrual period December 30 Patient is a 31-year-old female that comes to the emergency room complaining of vaginal bleeding during discharge. This is her fifth . She knows that she is . She also notes that this is twin gestation. Patient denies any pain. Denies any area. Denies any back pain. Patient is ambulatory to fast track in no acute distress MD Complaint: vaginal bleeding -: Sudden Severity scale (0 -10): 0 Consistency: intermittent Improves with: none Worsens with: none Are you Now?: Yes Associated Symptoms: denies other symptoms, vaginal bleeding - Related Data Sexually active: Yes Previous Rx's Medication Instructions Recorded Last Taken Type Ondansetron [Zofran Odt] 4 mg PO Q8HR PRN #10 tab.rapdis 02/10/22 Unknown Rx Metoclopramide [Reglan] 10 mg PO BID PRN #12 tab 02/22/22 Unknown Rx Allergies Allergy/AdvReac Type Severity Reaction Status Date / Time codeine Allergy Swelling Verified 08/18/21 02:14 ED Review of Systems ROS: Stated complaint: 8WEEKS PREG/BLEEDING Other details as noted in HPI Comment: All other systems reviewed and negative ED Past Medical Hx - Past Medical History Previous Medical History?: Yes Hx Psychiatric Treatment: Yes (Anxiety and depression) Additional medical history: Hyperemesis gravidarum - Surgical History Past Surgical History?: Yes Additional Surgical History: tonsilectomy - Family History Family history: no significant - Social History Smoking Status: Never Smoker Substance Use Type: None - Medications Home Medications: Home Medications Medication Instructions Recorded Confirmed Last Taken Type Ondansetron [Zofran Odt] 4 mg PO Q8HR PRN #10 tab.rapdis 02/10/22 Unknown Rx Metoclopramide [Reglan] 10 mg PO BID PRN #12 tab 02/22/22 Unknown Rx ED Physical Exam - General Limitations: No Limitations General appearance: alert, in no apparent distress - Head Head exam: Present: atraumatic, normocephalic - Eye Eye exam: Present: normal appearance - ENT ENT exam: Present: mucous membranes moist - Neck Neck exam: Present: normal inspection - Respiratory Respiratory exam: Present: normal lung sounds bilaterally. Absent: respiratory distress - Cardiovascular Cardiovascular Exam: Present: regular rate, normal rhythm. Absent: systolic murmur, diastolic murmur, rubs, gallop - GI/Abdominal GI/Abdominal exam: Present: soft, normal bowel sounds - Extremities Exam Extremities exam: Present: normal inspection - Back Exam Back exam: Present: normal inspection - Neurological Exam Neurological exam: Present: alert, oriented X3 - Psychiatric Psychiatric exam: Present: normal affect, normal mood - Skin Skin exam: Present: warm, dry, intact, normal color. Absent: rash ED Course Vital Signs 03/15/22 23:33 Temperature 98.4 F Pulse Rate 85 Respiratory 18 Rate Blood Pressure 100/55 O2 Sat by Pulse 100 Oximetry ED Medical Decision Making - Lab Data Result diagrams: 03/16/22 07:17 03/16/22 07:17 - Radiology Data Radiology results: report reviewed, image reviewed SEE REPORT - Medical Decision Making Labs 03/16/22 03/16/22 03/16/22 07:17 07:17 07:17 WBC 8.2 RBC 3.55 L Hgb 11.6 Hct 34.0 MCV 96 MCH 33 H MCHC 34 RDW 12.3 L Plt Count 261 Lymph % (Auto) 23.8 [place] % (Auto) 6.4 Eos % (Auto) 0.8 Baso % (Auto) 0.3 Lymph # (Auto) 1.9 [place] # (Auto) 0.5 Eos # (Auto) 0.1 Baso # (Auto) 0.0 Seg Neutrophils % 68.7 Seg Neutrophils # 5.6 Sodium 134 L Potassium 4.0 Chloride 103.3 Carbon Dioxide 22 Anion Gap 13 BUN 9 Creatinine 0.3 L Estimated GFR > 60 BUN/Creatinine Ratio 30 Glucose 91 Calcium 8.9 Total Bilirubin 0.20 AST 11 ALT 10 Alkaline Phosphatase 40 Total Protein 6.4 Albumin 4.3 Albumin/Globulin Ratio 2.0 HCG, Quant 72463 H Urine RBC (Auto) U Epithel Cells (Auto) 03/16/22 Unknown WBC RBC Hgb Hct MCV MCH MCHC RDW Plt Count Lymph % (Auto) [place] % (Auto) Eos % (Auto) Baso % (Auto) Lymph # (Auto) [place] # (Auto) Eos # (Auto) Baso # (Auto) Seg Neutrophils % Seg Neutrophils # Sodium Potassium Chloride Carbon Dioxide Anion Gap BUN Creatinine Estimated GFR BUN/Creatinine Ratio Glucose Calcium Total Bilirubin AST ALT Alkaline Phosphatase Total Protein Albumin Albumin/Globulin Ratio HCG, Quant Urine RBC (Auto) 1.0 U Epithel Cells (Auto) 4.0 Vital Signs 03/15/22 23:33 Temperature 98.4 F Pulse Rate 85 Respiratory 18 Rate Blood Pressure 100/55 O2 Sat by Pulse 100 Oximetry Labs noted. Vital signs normal. No tachycardia or hypertension Patient is in no pain. She is taking p.o. Ultrasound noted. Patient is aware of twin gestation. Patient educated on pelvic rest and discharge plan of care including diet, activity medications and follow-up. She verbalizes understanding she will see her BOXING MACHINE OPERATOR. She has been given a copy of her hCG. Note that the patient left prior to her UA resulting. Should it come back positive she will need to be called to be started on antibiotics. Patient denie s any back pain, has no CVA tenderness and no fever. - Differential Diagnosis RO AB/ECTOPIC Critical care attestation.: If time is entered above; I have spent that time in minutes in the direct care of this critically ill patient, excluding procedure time. ED Disposition Clinical Impression: Vaginal bleeding Twin gestation in first trimester Qualifiers: Multiple gestation type: unspecified Qualified Code(s): O30.001 - Twin p regnancy, unspecified number of placenta and unspecified number of amniotic sacs, first trimester Disposition: 01 HOME / SELF CARE / HOMELESS Is pt being admited?: No Does the pt Need Aspirin: No Condition: Stable Instructions: Multiple , Vaginal Bleeding During , First Trimester Additional Instructions: PELVIC REST TYLENOL FOR PAIN VITAMIN DAILY SEE OBGYN FOR FOLLOW UP Referrals: BRIGHT GALLEGOS MD [Staff Physician] - 3-5 Days Forms: Work/School Release Form(ED) Time of Disposition: 09:52
--- NOTE | 2022-03-16 09:45 | Ultrasound Report ---
ULTRASOUND OBSTETRIC INDICATION / CLINICAL INFORMATION: VAG BLEED IN PREG. Clinical Gestational Age (GA): 10.6 weeks.days TECHNIQUE: Transabdominal. COMPARISON: 02/22/2022 FINDINGS: Uterus measures 13.2 x 11.4 x 9.6 cm with twin gestations in place. The ovaries both appear unremarka ble with no appreciable pelvic free fluid. Twin A: [place]-rump length of 4.45 cm corresponding with an EGA of 11 weeks and 2 days. Heart rate 153 bpm. Twin B: [place]-rump length of 4.1 cm corresponding with an EGA of 11 weeks and 0 days. Heart rate is 6 6 bpm. IMPRESSION: Twin gestations as outlined above. Signer Name: Buddy Cedillo MD Signed: 03/16/2022 9:41 AM Workstation Name: [id number]
--- NOTE | 2022-03-16 09:45 | Ultrasound Report ---
ULTRASOUND OBSTETRIC INDICATION / CLINICAL INFORMATION: VAG BLEED IN PREG. Clinical Gestational Age (GA): 10.6 weeks.days TECHNIQUE: Transabdominal. COMPARISON: 02/22/2022 FINDINGS: Uterus measures 13.2 x 11.4 x 9.6 cm with twin gestations in place. The ovaries both appear unremarka ble with no appreciable pelvic free fluid. Twin A: [place]-rump length of 4.45 cm corresponding with an EGA of 11 weeks and 2 days. Heart rate 153 bpm. Twin B: [place]-rump length of 4.1 cm corresponding with an EGA of 11 weeks and 0 days. Heart rate is 6 6 bpm. IMPRESSION: Twin gestations as outlined above. Signer Name: Buddy Cedillo MD Signed: 03/16/2022 9:41 AM Workstation Name: [id number]
[2022-03-16 10:18] LABS: Bilirubin,Urine Negative (Negative); Color,Urine Yellow (Yellow)
[2022-03-16 10:19] LABS: Blood,Urine Small (Negative)
== END 2022-03-16 10:00 | disposition home or self-care (01) ==
LOC: ED 22:51
DX: O20.9 Hemorrhage in early pregnancy, unspecified (principal); O30.001 Twin pregnancy, unspecified number of placenta and unspecified number of amniotic sacs, first trimester; O21.0 Mild hyperemesis gravidarum; Z3A.11 11 weeks gestation of pregnancy; F41.9 Anxiety disorder, unspecified; F32.9 Major depressive disorder, single episode, unspecified; Z98.890 Other specified postprocedural states; Z88.5 Allergy status to narcotic agent
CPT/HCPCS: 36415; 76801; 76802; 80053; 81001; 84702; 85025; 86900; 86901; 99284

== ENCOUNTER 2022-05-09 02:28 | Outpatient (CLI) | payer MEDICAID ==
[2022-05-09 03:14] VITALS: BP 102/63
[2022-05-09] MEDS ORDERED: LACTATED RINGERS 1,000 ML IV ONE (03:26)
--- NOTE | 2022-05-09 04:34 | Ultrasound Report ---
Limited OB ultrasound INDICATION: Evaluate placenta FINDINGS: Twin with twin A in cephalic position. UZIEL measures 5.2 cm largest vertical pocke t. No lifting or separation of the placenta is seen. Heart rate is 1 34 bpm grade 0. Cervical length 4.5 cm. Twin B and right transverse position with UZIEL 2.4 cm. No lifting or separation of the placenta is see n. Placenta is grade 0 and anterior heart rate 1 43 bpm. IMPRESSION: Twin intrauterine . No lifting or separation of the placenta is identified. Signer Name: Bruce Dominique MD Signed: 05/09/2022 4:30 AM Workstation Name: [id number]
[2022-05-09 05:06] LABS: Bilirubin,Urine Negative (Negative); Blood,Urine Negative (Negative); Color,Urine Yellow (Yellow); Protein,Urine <15 mg/dL mg/dL (Negative)
[2022-05-09 05:08] LABS: Bacteria,Urine 1+ /HPF (Negative); Mucus,Urine FEW /HPF; RBC,Urine < 1.0 /HPF (0.0-6.0)
== END 2022-05-09 05:24 | disposition home or self-care (01) ==
LOC: TRG 02:28 → APU 02:29 → TRG 05:24
PROVIDERS: ATTEND Obstetrics & Gynecology
DX: O26.852 Spotting complicating pregnancy, second trimester (principal); O42.912 Preterm premature rupture of membranes, unspecified as to length of time between rupture and onset of labor, second trimester; Z3A.20 20 weeks gestation of pregnancy
CPT/HCPCS: 76815; 81001

== ENCOUNTER 2022-06-10 01:14 | Outpatient (CLI) | payer MEDICAID ==
[2022-06-10 03:49] LABS: Amphetamine Screen,Urine Negative; Benzodiazepines Screen,Urine Negative; Cannabinoid Screen,Urine Negative; Cocaine Screen,Urine Negative; Methadone Screen,Urine Negative; Opiate Screen,Urine Negative
--- NOTE | 2022-06-10 04:20 | Ultrasound Report ---
US OB limited INDICATION / CLINICAL INFORMATION: cervical length COMPARISON: Limited OB ultrasound 07/09/2022 TECHNIQUE: Using a transcutaneous probe, multiple grayscale, color Doppler, and spectral Doppler imag es of the uterus and fetus were captured and stored. FINDINGS: The endocervical canal and internal os is not well visualized on provided images. As measured the cer vix is 3.4 cm. Clinical estimated gestational age is 23 weeks 1 day based on LMP of 12/30/2021. No heart rate documented. Fetus lies in cephalic position. IMPRESSION: 1. Little change in cervical length as measured, the endocervical canal and internal os not well-visu alized. Signer Name: Luke Morris II, MD Signed: 06/10/2022 4:16 AM Workstation Name: [id number]
== END 2022-06-10 04:25 | disposition still patient (30) ==
LOC: TRG 01:14 → APU 01:16 → TRG 04:25
PROVIDERS: ATTEND Obstetrics & Gynecology Gynecology
DX: O9A.212 Injury, poisoning and certain other consequences of external causes complicating pregnancy, second trimester (principal); Z3A.23 23 weeks gestation of pregnancy
CPT/HCPCS: 36415; 76815; 80307; 82731

== ENCOUNTER 2022-06-10 04:36 | Emergency (ER) | payer MEDICAID ==
[2022-06-10 05:03] VITALS: BP 117/74
--- NOTE | 2022-06-10 06:06 | XRay Report ---
RIGHT HAND 3 VIEW(S) INDICATION / CLINICAL INFORMATION: INJURY COMPARISON: None available. FINDINGS: There may be soft tissue swelling along the proximal aspect of the small finger. A subtle nondisplace d fracture involving the base of the proximal phalanx of the right small finger is not excluded. Righ t hand otherwise demonstrates no significant abnormality. IMPRESSION: 1. Nondisplaced fracture involving the base of the small finger proximal phalanx is not excluded. Cor relation with physical exam recommended. Signer Name: Luke Morris II, MD Signed: 06/10/2022 6:02 AM Workstation Name: [id number]
== END 2022-06-10 19:45 | disposition left against medical advice (07) ==
LOC: ED 04:36
DX: M79.644 Pain in right finger(s) (principal); Z53.21 Procedure and treatment not carried out due to patient leaving prior to being seen by health care provider; Z79.899 Other long term (current) drug therapy
CPT/HCPCS: 36415; 76815; 80307; 82731